=== PATIENT | male | born 1985 | race Caucasian/White ===

== ENCOUNTER 2023-07-28 11:30 | Outpatient (AMB) | payer OTHER, SELFPAY ==
[2023-07-28 11:36] VITALS: BP 130/72; PULSE 103; TEMP 36.6; O2SAT 96; BMI 32.5
--- NOTE | 2023-07-28 11:36 | AM.OFFWIN_ITS ---
Intake Vital Signs 07/28/23 11:36 Height 5 ft 9 in Weight 220 lb BMI 32.5 BP 130/72 Blood Pressure Location Lt brachial Position Sitting Pulse 103 H Pulse Source Pulse Oximeter Temp 97.9 F Temp Source Temporal Artery Scan Pulse Oximetry (%) 96 Oxygen Delivery Method Room Air Intake Visit Reasons: CLINICAL RESEARCH NURSE Cold Symptoms, RT Eye Concerns Intake Note: pt is here today for cold symptoms rt eye concern started 1 week ago Patient Tobacco Use Status: Never used Tobacco Allergies No Known Allergies Allergy (Verified 07/28/23 12:09) Do you need a note to return to daycare/school/sports/work: No HPI CLINICAL RESEARCH NURSE Cold Symptoms, RT Eye Concerns HPI Details Patient presents for a sick visit. Reporting symptoms of sinus congestion, sore throat and difficulty swallowing. Low-grade fever. No family member is sick. No recent travel. Patient reports symptoms of malaise and fatigue. Patient also reports redness in the right eye. His daughter was sick with conjunctivitis recently. Has been using her medication. Symptoms are slowly clearing. PFS Social History Patient Tobacco Use Status: Never used Tobacco Physical Exam Vital Signs: Last Vital Signs Temp 97.9 F 07/28/23 11:36 Pulse 103 H 07/28/23 11:36 BP 130/72 07/28/23 11:36 Pulse Ox 96 07/28/23 11:36 Oxygen Delivery Method Room Air 07/28/23 11:36 BMI result Body Mass Index 32.5 Const General: cooperative and healthy appearing Nutritional Appearance: well nourished Orientation/consciousness: patient oriented x3 Limitations: no limitations HEENT Head: Yes normal to inspection Eyes Other: Right eye: Mild congestion in the conjunctiva. Cornea clear. General: appearance normal, both eyes and all related structures Neck Neck: Yes normal visual inspection Chest Chest palpation & inspection: normal palpation of entire chest wall Resp Effort & Inspection: normal respiratory effort Neuro General: patient oriented x3 Assessment & Plan Assessment & Plan (1) Upper respiratory tract infection: Code(s): J06.9 - Acute upper respiratory infection, unspecified Plan: Antibiotics ordered. Increase fluid intake. Tylenol for aches and pains. If symptoms worsen, follow-up here for a recheck. Coding Level of Care Code Est Pt Level 3 (98577) Diagnoses Upper respiratory tract infection J06.9
== END 2023-07-28 12:32 | disposition home or self-care (01) ==
PROVIDERS: Visit Provider Internal Medicine
DX: J06.9 Acute upper respiratory infection, unspecified (principal)
CPT/HCPCS: 99213

== ENCOUNTER 2023-08-13 19:34 | Emergency (ER) | payer OTHER, SELFPAY ==
--- NOTE | ~2023-08-13 | XR_ITS ---
EXAMINATION: XR FINGER, LEFT CLINICAL INFORMATION: Fifth digit laceration, pain COMPARISON: None available. TECHNIQUE: Three views of the left small finger. FINDINGS: Small soft tissue laceration is seen at the distal tip of the fifth digit. No retained radiopaque foreign body seen. Osseous structures are intact. XR/XR finger LT min 2V IMPRESSION: Soft tissue laceration. No acute osseous process.
[2023-08-13 19:54] VITALS: BP 127/82; PULSE 78; RESP 18; TEMP 36.6; O2SAT 96; BMI 29.5
--- NOTE | 2023-08-13 19:56 | ED.WOUNDLAC ---
HPI - Wound/Laceration General Chief Complaint: Wound/Laceration Stated Complaint: left had laceration Time Seen by Provider: 08/13/23 19:57 Source: patient Mode of arrival: ambulatory Limitations: no limitations History of Present Illness HPI narrative: 38-year-old male came in for evaluation left 5th finger caught with a electrical collar trimmer. Small superficial cut involving the nail, no active bleeding, patient is not up-to-date on his tetanus shot. Patient is right-handed dominant. Related Data Previous Rx's ?Medication ?Instructions ?Recorded azithromycin 250 mg tablet See Rx Instructions PO .COMPLEX #6 07/28/23 (Zithromax) tabs bacitracin 500 unit/gram topical 1 appl topical Q8H #144 ea 08/14/23 packet cephalexin 500 mg capsule 500 mg PO BID 7 days #14 caps 08/14/23 Allergies Allergy/AdvReac Type Severity Reaction Status Date / Time No Known Allergies Allergy Verified 08/13/23 19:57 Review of Systems Review of Systems: All other systems are reviewed and are negative Constitutional: Reports as per HPI and Reports no additional constitutional complaints Eyes: Reports as per HPI and Reports no additional eye complaints Reports system reviewed and no additional complaints, except as documented Cardiovascular: Reports as per HPI and Reports no additional cardiovascular complaints Respiratory: Reports as per HPI and Reports no additional respiratory complaints Gastrointestinal: Reports as per HPI and Reports no additional gastrointestinal complaints Genitourinary: Reports no additional female genitourinary complaints Musculoskeletal: Reports no additional musculoskeletal complaints Skin/Breast: Reports system reviewed and no additional complaints, except as docu Psychiatric: Reports no additional psychiatric complaints Endocrine: Reports no additional endocrine complaints Hematologic/Lymphatic: Reports no additional hematologic/lymphatic complaints Allergic/Immunologic: Reports no additional allergic/immunologic complaints Reports system reviewed and no additional complaints, except as documented and Reports Abnormal speech present [facility] Social History Social History Alcohol intake: never Patient Tobacco Use Status: Never used Tobacco Smoked in Last 30 Days: No Advance Directives: No Advance Directives Information Provided: Yes Do you have a plan to hurt others: No Plan Physical Exam Vital Signs: Vital Signs: Last Vital Signs Temp 98.0 F 08/14/23 05:12 Pulse 72 08/14/23 05:12 Resp 16 08/14/23 05:12 BP 122/89 08/14/23 05:12 Pulse Ox 95 08/14/23 05:12 O2 Del Method Room Air 08/14/23 05:12 BMI result Body Mass Index 29.5 Vital signs have been reviewed and appear to be correct. Blood pressure elevated. Heart rate normal. Respiratory rate normal. Temperature normal. Oxygen saturation normal. Appearance: Alert. Oriented X3. No acute distress. Head: Normal external exam. Normocephalic. Atraumatic. No Peguero signs noted. No raccoon eyes noted Eyes: PERRLA. EOMI. Conjunctiva and sclera normal. Eyelids normal. ENT: TM's Normal. Pharynx normal. Uvula midline. Moist mucous membranes. No trismus noted. No drooling noted. No muffled voice noted. Neck: Normal inspection. Neck supple. FROM. No adenopathy. Thyroid Normal. No meningeal signs. No neck mass noted. CVS: Normal heart rate and rhythm. Heart sound normal. No murmurs noted. Pulses normal throughout. Respiratory: No respiratory distress. Painless inspiration. Breath sounds normal. No wheezes/rales/rhonchi noted. Chest nontender. No accessory muscle usage noted or decreased air movement noted. Abdomen: Soft and nontender. Bowel sounds normal in all 4 quadrants. No distention noted. No organomegaly noted. No visible injury noted. Back: No CVA tenderness. Full range of motion noted. Skin: Skin warm and dry. Normal skin color. Normal skin turgor. No rashes/lesions/lacerations noted. Extremities: No lower extremity edema. Extremities exhibit normal range of motion. Extremities nontender. Neuro: Oriented X 3. Cranial nerve exam: II-XII are grossly intact No motor deficit. No sensory deficit. Reflexes normal. Extrem: Hand/finger images: 1. 1 cm laceration involving the nail 2. 1-1/2 cm laceration involving the palmar aspect of the 5th finger. Course Course Course Narrative: This is a rapid medical exam completed by Regan FIRE INVESTIGATOR: Additional HPI, ROS, PE not included below will be deferred to primary provider. Reevaluation(s) Reevaluation #1: Tetanus booster, small laceration involving the nail, no active bleeding, laceration was thoroughly cleaned will wrap with bacitracin start the patient on Keflex. Come back in 2 days for wound check. Time: 05:36 Medications Administered Discontinued Medications Generic Name Dose Route Start Last Admin Trade Name Frankieq PRN Reason Stop Dose Admin Diphtheria/Tetanus/Acell Pertussis 0.5 ml 08/13/23 19:56 08/14/23 03:53 Diphth,Pertus(Acell),Tet Adult 0.5 Ml Syringe IM 08/13/23 19:57 0.5 ml .ONCE ONE Administration Diphtheria/Tetanus/Acell Pertussis 0.5 ml 08/14/23 03:01 08/14/23 03:54 Diphth,Pertus(Acell),Tet Adult 0.5 Ml Syringe IM 08/14/23 03:02 Not Given .ONCE ONE Medical Decision Making Differential Diagnosis Differential Diagnoses: The differential diagnosis associated with the presentation includes (Finger laceration, tendon laceration, tetanus update.) Admission/Observation Consideration of admission/observation: Escalation of care including admission/observation considered Independent Interpretation I performed an independent interpretation of an: Plain X-Ray (Left small finger x-ray:Small soft tissue laceration is seen at the distal tip of the fifth digit. No retained radiopaque foreign body seen. Osseous structures are intact. ) Radiology Impression Discussion of test interpretation with radiology: I have reviewed the radiologist's reading. Discharge Plan Discharge Clinical Impression: Finger laceration Patient Disposition: Home, Self-Care Instructions: Finger Laceration (ED) Additional Instructions: Come back to the ED in 2 days for wound check. Prescriptions: New cephalexin 500 mg capsule 500 mg PO BID 7 Days Qty: 14 0RF bacitracin 500 unit/gram packet 1 appl topical Q8H Qty: 144 0RF No Action azithromycin [Zithromax] 250 mg tablet See Rx Instructions PO .COMPLEX Qty: 6 0RF Rx Instructions: take 500 mg today (day 1), then 250 mg for 4 days (days 2-5) PO Print Language: Lithuanian
[2023-08-14] MEDS: Diphth,Pertus(ACell),Tet Adult 0.5 ML SYRINGE IM (03:53)
[2023-08-14 05:12] VITALS: BP 122/89; PULSE 72; RESP 16; TEMP 36.7; O2SAT 95
[2023-08-14 05:47] VITALS: BP 122/89; PULSE 72; RESP 16; TEMP 36.7; O2SAT 95
== END 2023-08-14 05:48 | disposition home or self-care (01) ==
PROVIDERS: Emergency Provider Emergency Medicine
DX: S61.317A Laceration without foreign body of left little finger with damage to nail, initial encounter (principal); W29.3XXA Contact with powered garden and outdoor hand tools and machinery, initial encounter; Y93.9 Activity, unspecified; Y92.9 Unspecified place or not applicable; Y99.9 Unspecified external cause status
CPT/HCPCS: 73140; 90471; 90715; 99284